=== PATIENT | female | born 1960 | race Caucasian/White ===

== ENCOUNTER → 2017-01-14 | Outpatient (CLI) | payer SELFPAY ==
[~2017-01-14] MED LIST: CALCCHW25 PO; ESTR2TAB PO; PROG200C PO; TAB-TAB PO
[2017-01-17 19:52] LABS: PROGESTERONE 0.7 ng/mL (())
== END ==
LOC: CLAB 13:06
PROVIDERS: ATTEND Internal Medicine
DX: N95.1 Menopausal and female climacteric states (principal)
CPT/HCPCS: 36415; 82670; 83001; 84144; 84403; 86695; 86696

== ENCOUNTER → 2017-05-10 | Outpatient (CLI) | payer SELFPAY ==
[2017-05-14 15:51] LABS: PROGESTERONE 12.5 ng/mL
== END ==
LOC: CLAB 09:15
PROVIDERS: ATTEND Internal Medicine
DX: Z78.0 Asymptomatic menopausal state (principal)
CPT/HCPCS: 36415; 82670; 83001; 84144; 84403

== ENCOUNTER → 2017-05-31 | Outpatient (CLI) | payer SELFPAY ==
[~2017-05-31] MED LIST changes: +CLAR10CA3 PO; +LISI10TA3 PO; +MEGE40TA PO; +POTA-255 PO; +ZANT150T2 PO
[2017-05-31 14:29] LABS: AUTOMATED NEUTROPHIL # 4.4 TH/MM3 (1.8-7.7); BASOPHIL # 0.1 TH/MM3 (0-0.2); BASOPHIL % 1.5 % (0.0-2.0); EOSINOPHIL # 0.2 TH/MM3 (0-0.4); EOSINOPHIL % 2.5 % (0.0-4.0); HEMATOCRIT 33.4 % (35.0-46.0); HEMO FLAGS DIFF FINAL; LYMPH % 30.3 % (9.0-44.0); LYMPHOCYTE # 2.3 TH/MM3 (1.0-4.8); MEAN CELL VOLUME 88.5 FL (80.0-100.0); MEAN CORPUSCULAR HEMOGLOBIN 29.2 PG (27.0-34.0); MEAN CORPUSCULAR HGB CONC 32.9 % (32.0-36.0); MONO % 7.8 % (0.0-8.0); NEUT % 57.9 % (16.0-70.0); PLATELET COUNT 502 TH/MM3 (150-450); RED BLOOD COUNT 3.78 MIL/MM3 (4.00-5.30); RED CELL DISTRIBUTION WIDTH 14.7 % (11.6-17.2); WHITE BLOOD COUNT 7.6 TH/MM3 (4.0-11.0)
[2017-05-31 14:39] LABS: APTT (PATIENT) 25.5 SEC (24.3-30.1)
[2017-05-31 14:53] LABS: ALT (GPT) 16 U/L (10-53); ANION GAP 10 MEQ/L (5-15); AST (GOT) 13 U/L (15-37); BICARBONATE 25.5 MEQ/L (21.0-32.0); BLOOD UREA NITROGEN 14 MG/DL (7-18); CHLORIDE 107 MEQ/L (98-107); GLOMERULAR FILTRATION RATE 53 ML/MIN (>89); GLUCOSE,FASTING 96 MG/DL (74-99); POTASSIUM 3.6 MEQ/L (3.5-5.1); SODIUM (NA) 142 MEQ/L (136-145)
[2017-05-31 14:56] LABS: ALKALINE PHOSPHATASE 54 U/L (45-117); TOTAL BILIRUBIN ADULT 0.3 MG/DL (0.2-1.0)
--- NOTE | 2017-05-31 21:49 | EKG ---
Date Performed: 05/31/2017 Time Performed: 14:53:44 PTAGE: 57 years EKG: Sinus rhythm NORMAL ECG NO PREVIOUS TRACING DOCTOR: Kusum Russell Interpretating Date/Time 05/31/2017 21:47:40
== END ==
LOC: CPRE 14:03
PROVIDERS: ATTEND Obstetrics & Gynecology Gynecologic Oncology
DX: Z01.810 Encounter for preprocedural cardiovascular examination (principal); Z01.812 Encounter for preprocedural laboratory examination; C54.1 Malignant neoplasm of endometrium
CPT/HCPCS: 36415; 80053; 85025; 85610; 85730; 93005

== ENCOUNTER 2017-07-04 05:34 | Observation (INO) | payer OTHER ==
[~2017-07-04] VITALS: Ht 170.2 cm; Wt 69.5 kg
[~2017-07-04 05:34] MED LIST changes: -CALCCHW25 PO; -ESTR2TAB PO; -PROG200C PO; -TAB-TAB PO
[2017-07-04] MEDS ORDERED: SODIUM CHLORIDE FLUSH PRN IV FLUSH (06:00)
[2017-07-04] MEDS ORDERED: LACTATED RINGER'S 1000 ML IV PRN (06:00)
[2017-07-04] MEDS ORDERED: HEPARIN SODIUM - SQ 10,000 UNITS/ML VIAL SQ PRN (06:00)
[2017-07-04] MEDS ORDERED: SODIUM CHLORID 0.9% 500 ML IV PRN (06:00)
[2017-07-04] MEDS ORDERED: METOPROLOL TARTRATE 25 MG TAB PO PRN (06:00)
[2017-07-04] MEDS ORDERED: ceFAZolin 1,000 MG/NS 100 ML IV SCH ×2 (06:00)
[2017-07-04] MEDS ORDERED: POVIDONE IODINE 5% (ANTISEPSIS KIT) 4 APPLICATIONS EACH NARE PRN (06:00)
[2017-07-04] MEDS ORDERED: CHLORHEXIDINE GLUCONATE 2 % 1 PACK (2 CLOTHS) TOPICAL PRN (06:00)
[2017-07-04] MEDS ORDERED: POTA99TA4 PO (06:38)
[2017-07-04] MEDS ORDERED: MEGE40SU PO (06:41)
[2017-07-04] MEDS ORDERED: fentaNYL CITRATE 250 MCG/5 ML AMP ONE ×2 (08:28→16:49)
[2017-07-04] MEDS ORDERED: SODIUM CHLORIDE FLUSH BID IV FLUSH SCH (09:00)
[2017-07-04] MEDS ORDERED: ceFAZolin INJ 1,000 MG VIAL IV ONE ×2 (11:03→12:00)
[2017-07-04] MEDS ORDERED: METHYLENE BLUE 10 MG/ML VIAL IV ONE (11:04)
[2017-07-04] MEDS ORDERED: LIDOCAINE 1%/EPINEPHrine 1:100,000 SOLN 20 ML VIAL INFIL ONE (11:06)
[2017-07-04] MEDS ORDERED: ROCURONIUM INJ 50 MG/5 ML SYRINGE IV PUSH ONE (12:00)
[2017-07-04] MEDS ORDERED: KETOROLAC TROMETHAMINE 30 MG/ML (IVP) VIAL IV PUSH ONE (12:00)
[2017-07-04] MEDS ORDERED: LACTATED RINGER'S 1000 ML INJ 2,000 ML IV ONE (12:00)
[2017-07-04] MEDS ORDERED: PROPOFOL 200 MG/20 ML AMP IV ONE (12:00)
[2017-07-04] MEDS ORDERED: VECURONIUM BROMIDE 20 MG VIAL IV ONE (12:00)
[2017-07-04] MEDS ORDERED: ONDANSETRON HCL 4 MG/2 ML VIAL IV PUSH ONE (12:00)
[2017-07-04] MEDS ORDERED: DEXAMETHASONE SOD PHOS 4 MG/ML VIAL IV ONE (12:00)
[2017-07-04] MEDS ORDERED: METHYLENE BLUE IV ONE (12:00)
[2017-07-04] MEDS ORDERED: SODIUM CHLORID 0.9% IV ONE (12:00)
[2017-07-04] MEDS ORDERED: LIDOCAINE HCL 1% PF 5 ML SYRINGE OTHER ONE (12:00)
[2017-07-04] MEDS ORDERED: SUGAMMADEX SODIUM 200 MG/2 ML VIAL IV PUSH ONE (12:09)
[2017-07-04] MEDS ORDERED: SODIUM CHLORIDE 0.9% FLUSH 10 ML FLUSH IV FLUSH PRN (13:15)
[2017-07-04] MEDS ORDERED: *MEPERIDINE 25 MG INJ VIAL PERIprocedural Use ONLY ONE (13:25)
[2017-07-04] MEDS ORDERED: D5-1/2 NS + KCL 20 MEQ INJ 1,000 ML ONE (13:31)
[2017-07-04] MEDS: D5-1/2 NS + KCL 20 MEQ INJ 1,000 ML IV SCH ×2 (13:35→22:25)
[2017-07-04] MEDS ORDERED: DO NOT ADM ANY ANTICOAGULANT DRUGS PRN (13:45)
[2017-07-04] MEDS ORDERED: traMADol/ACETAMINOPHEN 37.5/325 1 TAB PO PRN (14:00)
[2017-07-04] MEDS ORDERED: ONDANSETRON HCL 4 MG/2 ML VIAL IVP PRN (14:00)
[2017-07-04] MEDS ORDERED: diphenhydrAMINE HCL 25 MG CAP PO PRN (14:00)
[2017-07-04] MEDS ORDERED: LORazepam 0.5 MG TAB PO PRN (14:00)
[2017-07-04] MEDS ORDERED: *morphine SULFATE 4 MG/ML PERIprocedure ONLY ONE ×2 (14:09→14:26)
[2017-07-04 16:05] VITALS: BP 130/64; PULSE 76; RESP 18; O2SAT 100
--- NOTE | 2017-07-04 16:27 | PD.ONC.PN ---
Subjective Subjective Remarks post op pt sleeping, wakes to voice states feels a little dizzy from narcotics I explained she will be getting scheduled IV Toradol Q 6 hours and narcotics are PRN...she does not want anymore narcotics so I will place order for PRN Ofirmev if she feels like she needs more pain control despite the Toradol Objective Data Date Time Temp Pulse Resp B/P (MAP) Pulse Ox O2 Delivery O2 Flow Rate FiO2 07/04/17 16:05 76 18 130/64 (86) 100 07/04/17 15:15 97.6 74 12 124/62 (82) 100 Nasal Cannula 2 07/04/17 15:00 72 9 113/58 (76) 100 07/04/17 14:45 73 12 126/60 (82) 100 07/04/17 14:30 73 12 118/58 (78) 100 07/04/17 14:15 76 8 125/61 (82) 100 07/04/17 14:00 76 10 119/56 (77) 100 07/04/17 13:45 79 8 129/63 (85) 100 07/04/17 13:30 81 12 143/66 (91) 100 07/04/17 13:15 99 12 142/64 (90) 100 Nasal Cannula 2 07/04/17 13:09 97.6 108 18 149/66 (93) 100 Nasal Cannula 2 07/04/17 06:22 98.7 76 16 132/62 (85) 99 07/04/17 07/04/17 07/04/17 07:00 15:00 23:00 Intake Total 1600 ml 189 ml Output Total 850 ml 200 ml Balance 750 ml -11 ml Administered Medications Medications (Trade) Dose Ordered Sig/Inga Route PRN Reason Start Time Stop Time Status Last Admin Dose Admin Heparin Sodium (Porcine) (Heparin Inj) 5,000 units CARDROOM ATTENDANT PRN SQ GIVE CARDROOM ATTENDANT TO OR PRE-OP 07/04/17 06:00 07/04/17 22:00 07/04/17 06:20 Cefazolin Sodium 1000 mg/Sodium Chloride 100 ml @ 200 mls/hr CARDROOM ATTENDANT IV 07/04/17 06:00 07/07/17 05:59 07/04/17 07:04 Lactated Ringer's 1,000 ml @ 30 mls/hr Q24H PRN IV SEE LABEL COMMENTS 07/04/17 06:00 07/07/17 05:59 07/04/17 06:15 Povidone Iodine (Betadine 5% Antisepsis Kit) 1 applic CARDROOM ATTENDANT PRN EACH NARE SEE LABEL COMMENTS 07/04/17 06:00 07/07/17 05:59 07/04/17 06:25 Chlorhexidine Gluconate (Chlorhexidine 2% Cloth) 3 pack CARDROOM ATTENDANT PRN TOPICAL SEE LABEL COMMENTS 07/04/17 06:00 07/07/17 05:59 07/04/17 06:10 Potassium Chloride/Dextrose/ Sod Cl 1,000 ml @ 100 mls/hr Q10H IV 07/04/17 14:00 07/04/17 13:35 Objective Remarks GENERAL: Well-nourished, well-developed patient. SKIN: Warm and dry. HEAD: Normocephalic. EYES: No scleral icterus. No injection or drainage. NECK: Supple, trachea midline. CARDIOVASCULAR: Regular rate and rhythm without murmurs. RESPIRATORY: Breath sounds equal bilaterally. No accessory muscle use. GASTROINTESTINAL: Abdomen soft, non-tender, nondistended. EXTREMITIES: No cyanosis, or edema. MUSCULOSKELETAL: Adequate muscle tone. NEUROLOGICAL: No obvious focal deficit.sleepy Assessment/Plan Problem List: (1) Postoperative state ICD Codes: Z98.890 - Other specified postprocedural states Status: Acute Plan: s/p RA avelina vacast post op orders in chart will add IV Ofirmev d/c modi in am OOB to chair slick RIDLEY anticipate discharge home in next 24 hours (2) Endometrial cancer ICD Codes: C54.1 - Malignant neoplasm of endometrium Plan: s/p RA avelina vacast with BSO final pathology pending will follow up as outpt in 2 weeks for final pathology discussion Huong Rodrigues Jul 04, 2017 16:27
[2017-07-04] MEDS ORDERED: MIDAZOLAM HCL 2 MG/2 ML VIAL ONE (16:49)
[2017-07-04] MEDS ORDERED: ACETAMINOPHEN 1000 MG/100 ML 100 ML IV ONE (16:50)
[2017-07-04 17:03] VITALS: PULSE 70
[2017-07-04] MEDS: ACETAMINOPHEN 1000 MG/100 ML 100 ML IV SCH ×2 (17:42→22:21)
[2017-07-04] MEDS: KETOROLAC TROMETHAMINE 30 MG/ML (IVP) VIAL IVP SCH (17:42)
[2017-07-04 20:00] VITALS: BP 131/58; PULSE 74; PULSE 77; RESP 18; TEMP 98.5; O2SAT 98
[2017-07-04] MEDS: SODIUM CHLORIDE 0.9% FLUSH 10 ML FLUSH IV FLUSH SCH (20:36)
[2017-07-05] VITALS: BP 121/57; PULSE 74; RESP 16; TEMP 99; O2SAT 99
[2017-07-05] MEDS: KETOROLAC TROMETHAMINE 30 MG/ML (IVP) VIAL IVP SCH ×2 (01:51→06:04)
[2017-07-05 03:44] VITALS: BP 118/56; PULSE 70; RESP 16; TEMP 98.6; O2SAT 99
[2017-07-05] MEDS: ACETAMINOPHEN 1000 MG/100 ML 100 ML IV SCH (05:21)
[2017-07-05 06:59] LABS: BASOPHIL # 0.1 TH/MM3 (0-0.2); BASOPHIL % 0.5 % (0.0-2.0); EOSINOPHIL % 0.2 % (0.0-4.0); HEMATOCRIT 31.6 % (35.0-46.0); HEMOGLOBIN 10.2 GM/DL (11.6-15.3); LYMPH % 14.2 % (9.0-44.0); LYMPHOCYTE # 1.8 TH/MM3 (1.0-4.8); MEAN CELL VOLUME 82.5 FL (80.0-100.0); MEAN CORPUSCULAR HEMOGLOBIN 26.6 PG (27.0-34.0); MEAN CORPUSCULAR HGB CONC 32.3 % (32.0-36.0); MEAN PLATELET VOLUME 7.5 FL (7.0-11.0); MONO % 6.9 % (0.0-8.0); MONOCYTE # 0.9 TH/MM3 (0-0.9); NEUT % 78.2 % (16.0-70.0); PLATELET COUNT 465 TH/MM3 (150-450); RED BLOOD COUNT 3.83 MIL/MM3 (4.00-5.30); RED CELL DISTRIBUTION WIDTH 15.7 % (11.6-17.2); WHITE BLOOD COUNT 12.7 TH/MM3 (4.0-11.0)
[2017-07-05 07:11] VITALS: O2SAT 99
[2017-07-05 07:16] LABS: BICARBONATE 25.8 MEQ/L (21.0-32.0); CREATININE 0.77 MG/DL (0.50-1.00)
[2017-07-05] MEDS ORDERED: traMADol-ACETAMIN 37.5-325 MG PO (07:19)
[2017-07-05] MEDS ORDERED: LORATADINE 10 MG TAB PO SCH (09:00)
[2017-07-05] MEDS ORDERED: FAMOTIDINE 20 MG TAB PO SCH (09:00)
[2017-07-05] MEDS ORDERED: LISINOPRIL 10 MG TAB PO SCH (09:00)
[2017-07-05 09:06] VITALS: BP 118/58; PULSE 99; RESP 20; TEMP 99; O2SAT 100
--- NOTE | 2017-07-05 09:20 | MP ---
cc: PK KELLY M.D., KELLY L. MD DATE OF SURGERY: 07/04/2017 PREOPERATIVE DIAGNOSIS 1. Endometrial cancer. 2. Enlarged uterus. 3. Postmenopausal bleeding. POSTOPERATIVE DIAGNOSIS 1. Endometrial cancer. 2. Enlarged uterus. 3. Postmenopausal bleeding. 4. Extensive pelvic adhesions. PROCEDURE Robotic-assisted laparoscopic hysterectomy, bilateral salpingo-oophorectomy (resection of residual adnexal tissue), bilateral retroperitoneal pelvic exploration with excisional lymph node biopsies, extensive lysis of adhesions. SURGEON Jailene Younger MD PROFESSIONAL SKATER [employer]. ANESTHESIA General endotracheal anesthesia. ESTIMATED BLOOD LOSS 200 ccs. HISTORY 57-year-old female with postmenopausal bleeding, underwent evaluation including endometrial biopsy that showed a grade 1 endometrial adenocarcinoma. Imaging showed a thickened endometrial stripe and a prominent uterus that was enlarged without overt evidence of metastatic disease. She in recent weeks has been on progesterone medication which has reduced the bleeding to some extent and this was interval treatment until she was able to move forward with surgery. She is seen in the preop holding area where we again summarized findings in her case to date. I had the opportunity to speak with her last Tuesday in our office when she was in the office going over surgical consents and we reviewed the procedures, the anticipated plan and questions were asked and answered, again covered today. We agreed the principal objective is to remove the central tumor, hysterectomy, to remove any fallopian tube and/or ovarian tissue that persists. Historically she had at least a salpingectomy for ectopic . It is uncertain if the tube and ovary were removed. CAT scan shows no overt evidence of metastatic disease but CAT scan cannot clearly delineate microscopic disease. We reviewed the pros and cons of lymph node dissection in the setting of various risk factors based on the extent of primary tumor as well as the potential problems associated with lymph node dissection. The agreed upon plan following a series of discussions is to thoroughly evaluate the lymph nodes, and should any lymph nodes be prominent or suspicious , they should be removed. The agreed upon objectives include avoidance of complete lymphadenectomy in an effort to offset significant problems such as lymphedema. Pros, cons, risks and benefits were again discussed. Questions were asked and answered. She expressed good understanding. FINDINGS The uterine cavity sounded to between 10 and 11 cm. The uterus itself was symmetrically enlarged. In the pelvis the adhesions were extensive. The colon was fixed to the left pelvic sidewall. The cul-de-sac was obliterated. The colon was stuck to the posterior uterus and cervix. On the right side whatever residual adnexal tissue may be present was densely adherent to the right pelvic sidewall. There was some old blood appearing fluid that drained from a small cyst in the region of the right adnexa suggestive of prior endometriosis. There is also seemingly some small diverticulum but without evidence of active diverticulitis. Visible and palpable inspection revealed no overtly enlarged lymph nodes in the para-aortic or pericaval region. In the right pelvis there were two approximately 1 cm prominent lymph nodes in the obturator space as well as one prominent lymph node along the distal external iliac artery. On the left pelvis there were two prominent lymph nodes along the external iliac artery and one prominent lymph node right at the bifurcation of the common iliacs into the external and internal iliac arteries. In the peritoneal cavity the liver diaphragm edges were smooth. The omentum grossly appeared normal. The large, small bowel and adjacent mesentery were normal without implants. The preliminary pathology of the uterus once removed showed a fairly sizable tumor 6-7 cm, whereas it was predominantly exophytic filling the endometrial cavity and arising from both the anterior and posterior tovar of the uterus. The component of invasion was less noted. However, there were two areas of invasion estimated to be at or just below 50% of the width of the myometrium. The cervix was dilated with tumor extending into the endocervical canal but there was no overt evidence of tumor invasion in the cervix on preliminary assessment. Furthermore, whereas all adnexal tissue was removed as the gonadal vessels were taken at the pelvic brim and dissected distally, on preliminary assessment there was no obvious ovarian tissue attached to either side of the uterus, but with final pathology assessment forthcoming. STATEMENT OF COMPLEXITY/MODIFIER It is estimated that between 90 and 120 minutes of additional operative time were required and spent with meticulous lysis of adhesions to help restore normal anatomy, gain access to the pelvis, identify necessary structures and to accomplish surgical objectives. Modifier should be applied accordingly. PROCEDURE She is taken to the operating room, placed in dorsal lithotomy position. After general endotracheal anesthesia was administered time-out was undertaken. She was identified by sight recognition and hospital ID bracelet and the proposed procedure was reviewed and confirmed. She was carefully positioned in padded Juan Jose stirrups. Her arms were padded and secured to the sides. She was further secured to the operating table with eggcrate padding and tape in across chest over the shoulder fashion. All sites were noted to be properly aligned with no malalignments or pressure points. She was prepped and draped in sterile fashion, placed in high lithotomy position, cervix was grasped, uterine cavity sounded and a standard V-Care manipulator was inserted and secured in usual fashion. Cleary catheter was placed in the bladder. She was returned to low lithotomy position. Change of sterile gloves was undertaken. We confirmed that an orogastric tube was in the stomach on suction and we completed draping in anticipation of laparoscopy. With manual elevation of the abdominal wall and direct laparoscopic visualization a 5-mm cannula was introduced in the left upper quadrant in an atraumatic fashion, carbon dioxide gas was insufflated. Under laparoscopic visualization a 12 mm cannula was placed in midline above the umbilicus, 8 mm cannula was placed in the right upper quadrant and left lateral quadrant. The original 5-mm was exchanged for an 8-mm cannula. The anatomy was surveyed with findings as described above. Peritoneal washings were obtained for cytology. She was placed in Trendelenburg position. The small bowel was folded back on its mesenteric root. Three Ray-Ricky sponges were placed around the root of the small bowel mesentery. The robotic system was brought into the operative field, attached in usual fashion. Monopolar scissors, fenestrated bipolar forceps and Prograsp manipulators were placed in arms number one, two and three respectively and I took my place at the surgeon's console. As noted above, extensive time was taken in lysis of adhesions, sharp dissection to mobilize the colon from the posterior wall of the uterus and cervix to open the posterior cul-de-sac to free adhesions between the colon and left pelvic sidewall to mobilize the colon to gain access to the left pelvic sidewall and to mobilize the colonic mesentery and pericolonic fat from its adhesions against the right pelvic sidewall. The right round ligament was isolated, cauterized and transected. The anterior and posterior leafs of the broad ligament were opened. The right ureter was identified. The right infundibulopelvic ligament was isolated. The intervening peritoneum was opened and the infundibulopelvic ligament was isolated to the level of the pelvic brim where it was cauterized and transected. Dissection was carried out distally. There was no overt residual ovarian or fallopian tube tissue, although dissection was carried out toward the uterus, there was a small collection of old blood and a small cystic component that suggested possible prior endometriosis. Posterior peritoneum was further opened, dissected posteriorly and the vesicouterine peritoneum was dissected off the right lower uterine segment and cervix and the right uterine vessels were skeletonized. The uterine vessels were prominent and the lower uterine segment was dilated. Attention was directed toward the contralateral side where the left round ligament was isolated, cauterized and transected. The anterior and posterior leafs of the broad ligament were opened. The left ureter was identified. The left infundibulopelvic ligament was isolated. The intervening peritoneum was opened. The infundibulopelvic ligament was dissected to the level of the pelvic brim where it was cauterized and transected. Dissection was carried distally such that any adnexal tissue that was present was dissected free, remained attached to the uterus and the posterior peritoneum was further dissected, opened along the left side of the uterus and cervix. The vesicouterine peritoneum was dissected off the left lower uterine segment and cervix and the left uterine vessels were skeletonized. Now that the prominent vasculature was isolated bilaterally, it was cauterized thoroughly bilaterally starting at the level of the lower uterine segment and cervix and when there was complete cauterization bilaterally and the uterus showed diffuse blanching, at this point the vessels were transected bilaterally. The left cardinal, paracervical and uterosacral ligaments were isolated, cauterized and transected along the left side of the uterus and cervix and attention was directed toward the right side where similarly the right cardinal, paracervical and uterosacral ligaments were isolated, cauterized and transected in a stepwise fashion. Circumferential colpotomy was performed the cervix from the upper vagina and due to the large size of the uterus relative to the pelvic outlet, I left the surgeon's console to deliver the specimen transvaginally. With countertraction using tenaculums positioning and retraction on the posterior wall of the vagina, the specimen was delivered which included uterus, cervix and whatever residual adnexal tissue were present and a pneumooccluder balloon was placed in the vagina to maintain pneumoperitoneum. I returned to the surgeon's console. Instruments one and three exchanged for needle drivers, as a 0 Vicryl suture was introduced, the vaginal cuff was closed starting at the left corner, full-thickness closure including the posterior peritoneum, edge of the uterosacral ligament and were tied via instrument tie. The closure was held on countertraction as a running continuous full-thickness closure was carried across the vaginal apex to the contralateral corner where it was similarly fixed and secured, tied via instrument tie. The needle was cut and removed. The preliminary pathology came back with findings as described above. The lymph node basins were inspected with findings as described above. Dissection was started on the right side where the paravesical, pararectal and obturator spaces were opened. The first lymph node along the distal external iliac artery was isolated with bipolar cautery and sharp dissection was removed, was placed on the Ray-Ricky sponge that was in the right pericolic gutter and then the obturator space was further inspected. Two prominent lymph nodes were detected within the obturator space ventral to the obturator nerve and these were isolated and with bipolar cautery and sharp dissection were removed. The remainder of the lymph node basin was carefully inspected. There were no other visible or prominent lymph nodes. The remainder of the lymphatics were left intact. Attention was directed toward the left side where similar the paravesical, pararectal and obturator spaces were developed. Two prominent lymph nodes were noted along the external iliac artery and vein. These were isolated, removed with bipolar cautery and sharp dissection. They were placed on a Ray-Ricky sponge in the left pericolic gutter and obturator space was further developed. There were no prominent lymph nodes within the obturator space itself but at the bifurcation of the common iliac to the external and internal iliac was a prominent lymph node which was isolated, removed and placed with the other lymph nodes in the left pericolic gutter. Careful inspection of the lymphatic basin showed no other detectable or prominent lymph nodes and the remainder of the lymphatics were left intact. The integrity of the bladder was confirmed by filling the bladder dyed with methylene blue. The bladder filled nicely under pressure. There were no areas of blue to suggest thinning of the bladder, certainly no extravasation of dye. There is good peristalsis of the ureters bilaterally and it was felt that all reasonable surgical objectives had been completed. The robotic instruments were removed. The robotic system was disengaged from the operative field. I reentered the bedside under sterile condition. 12 cm EndoCatch bag was used to capture first the left pelvic lymph nodes and then another EndoCatch bag to capture the right pelvic lymph nodes which were brought out through the 12-mm fascial incision. Each of the three Ray-Ricky sponges that were placed in the peritoneal cavity were removed. Each were removed individually and inspected and noted to be removed in their entirety. Visual inspection confirmed good hemostasis. No remaining foreign objects in the peritoneal cavity. Hemostatic Surgicel powder was placed across the vaginal cuff and lateral pelvic sidewall dissection and attention was directed toward closing. 12 mm fascial defect closed with 0 Vicryl sutures using needle pass fascial closure apparatus, tied securely which rendered the fascia completely airtight and hemostatic. The remaining incisions closed with 3-0 Vicryl subcutaneous, 3-0 Vicryl subcuticular and then Steri-Strips were used to cover these incisions. She was returned to dorsal lithotomy position. The vaginal cuff was well-supported intact. There were no vaginal lacerations. There was a little bit of generalized oozing along the vaginal mucosa at the apex and Surgicel snow was placed at the vaginal apex to assist in continued hemostasis. There were no remaining foreign objects in the vagina and the final counts were correct. She was returned to dorsal supine position and was pending reversal of anesthesia when I left the operating room to precede her to the Post Anesthesia Care Unit. MD RENETTA Herndon/SHARLA /7:12 AM /8:20 AM YAHIR
--- NOTE | 2017-07-05 09:24 | MD ---
cc: PK KELLY M.D., KELLY L. MD ADMISSION DATE: 07/04/2017 DISCHARGE DATE: 07/05/2017 [facility] Visit Search.Discharge Date PROCEDURE 07/04/2017 - Robotic-assisted laparoscopic hysterectomy, bilateral salpingo-oophorectomy, bilateral pelvic lymph node excisional biopsies, extensive lysis of adhesions. DIAGNOSIS Endometrial cancer. HOSPITAL COURSE She did well in the early postoperative period and remained hemodynamically stable. Ins and outs 2211/1950. POSTOP LABS H&H 10.2 and 31.6. Platelets 465, white count 12.7. Electrolytes essentially normal. BUN and creatinine 7 and 0.77. PHYSICAL EXAMINATION VITAL SIGNS: Afebrile, pulse 70-74, respirations 16-18, blood pressure 118-131/56-64, O2 saturations greater than or equal to 98%. GENERAL: Alert and oriented x3, in no acute distress. LUNGS: Clear. CARDIOVASCULAR: Regular rate and rhythm. ABDOMEN: Incisions is clean and dry. SOFTWARE ADMINISTRATOR: No active bleeding. ASSESSMENT Postoperative day #1. Findings, steps taken at surgery, preliminary pathology were reviewed. Activities and restrictions discussed. Questions were asked and answered. She expressed good understanding. PLAN Anticipate discharge to home. DISCHARGE INSTRUCTIONS She is to contact our office to ensure she has a postop visit scheduled in approximately 2 weeks. Will have the final pathology at that time and will go over the pathology at the time of follow-up visit. She is to resume prior medications. She will have a prescription for Ultracet. She is to contact our office between now and then should she have any questions or problems. MD RENETTA Herndon/ALVINA /7:08 AM /9:02 AM
[2017-07-05] MEDS ORDERED: ACETAMINOPHEN 500 MG CPLT PO PRN (09:45)
[2017-07-05] MEDS: SODIUM CHLORIDE 0.9% FLUSH 10 ML FLUSH IV FLUSH SCH (09:51)
== END 2017-07-05 09:49 | disposition home or self-care (01) ==
LOC: HSDC 05:34 → HSDI 13:04 → HCIN 15:59
PROVIDERS: ADMIT Obstetrics & Gynecology Gynecologic Oncology; ATTEND Obstetrics & Gynecology Gynecologic Oncology
DX: C54.1 Malignant neoplasm of endometrium (principal); N73.6 Female pelvic peritoneal adhesions (postinfective); N85.2 Hypertrophy of uterus; N95.0 Postmenopausal bleeding
CPT/HCPCS: 00400; 00840; 38500; 58552; 80048; 85025; 86850; 86900; 86901; 86920; 88112; 88305; 88307; 88309; 88331; 94150; 96365; 96366; 96367; 96368; 96375; 96376; G0378; J0131; J0690; J1100; J1644; J1885; J2175; J2250; J2270; J2405; J3010; J3480; J7120

== ENCOUNTER 2017-07-27 08:01 | Day surgery (SDC) | payer OTHER ==
[~2017-07-27] VITALS: Ht 170.2 cm; Wt 68.6 kg
[~2017-07-27 08:01] MED LIST changes: -MEGE40TA PO; -POTA-255 PO; +POTA99TA4 PO; +traMADol-ACETAMIN 37.5-325 MG PO
[2017-07-27 08:25] VITALS: BP 128/68; PULSE 96; RESP 20; TEMP 97.8; O2SAT 98
[2017-07-27] MEDS ORDERED: CHLORHEXIDINE GLUCONATE 2 % 1 PACK (2 CLOTHS) TOPICAL SCH (08:45)
[2017-07-27] MEDS ORDERED: SODIUM CHLORIDE 0.9% 1000 ML IV SCH (08:45)
[2017-07-27] MEDS: VANCOMYCIN 1000 MG/NS 250 ML - implanted port/tunneled catheter IV SCH ×4 (08:45→11:34)
[2017-07-27] MEDS ORDERED: POVIDONE IODINE 5% (ANTISEPSIS KIT) 4 APPLICATIONS EACH NARE SCH (08:45)
[2017-07-27] MEDS: ceFAZolin 2 GM PREMIX 50 ML - implanted port/tunneled catheter insertion IV SCH ×2 (08:47→11:34)
[2017-07-27] MEDS ORDERED: MIDAZOLAM HCL 2 MG/2 ML VIAL ONE ×2 (09:11)
[2017-07-27 10:25] VITALS: BP 134/69; PULSE 74; RESP 16; TEMP 98.7; O2SAT 95
[2017-07-27 10:40] VITALS: BP 140/79; PULSE 83; RESP 16; O2SAT 97
--- NOTE | 2017-07-27 10:48 | RADRPT ---
EXAM DATE/TIME: 07/27/2017 08:41 [facility] COMPARISON: No previous studies available for comparison. INDICATIONS : Patient presents with endometrial cancer in need of port placement for treatment. MEDICAL HISTORY : GERD Hemorrhoids in 2015 Hypercholesterolemia in 2015 Peptic ulcer disease in 2015 Diverticulitis in 1989 Diverticulosis in 1989 HTN in 1989 SURGICAL HISTORY : Biopsy (endometrial) in 2017 Colonoscopy in 2015 Mini lap, jessica in 1990 Exp. lap right salpingectomy (ectopic ) in 1989 Multiple biopsies (limpoma) in 1985 ENCOUNTER: Initial ACUITY: 2 months PAIN SCORE: 0/10 LOCATION: N/A FLUORO TIME: 0.7 minutes IMAGE SERIES: SEDATION TIME: 30 minutes ACCESS: Right internal jugular vein SEDATION: 1.) 2 mg midazolam (Versed) IV 2.) 100 mcg fentanyl (Sublimaze) IV Prophylactic antibiotics were administered with appropriate pre-procedure timing. Vancomycin within 2 hours of procedure, Ancef (or alternative) within 1 hour of procedure. DEVICE: 1. 8 Jamaican single lumen Xcela Plus Port PROCEDURE : 1. Continuous pulse oximetry and EKG monitoring. 2. Intravenous conscious sedation. 3. Ultrasound guidance for venous access. 4. Fluoroscopic guided implantable central venous port placement. The patient was placed supine. The neck was prepped in sterile fashion. Full sterile technique was u sed, including cap, mask, sterile gloves and gown, and a large sterile sheet. Hand hygiene and 2% ch lorhexidine Betadine was utilized per protocol for cutaneous antisepsis with appropriate dry time for site. Sterile gel and sterile probe cover were utilized for ultrasound guidance. The skin and sub cutaneous tissues were infiltrated with local anesthetic solution. Under direct ultrasound guidance, central venous access was accomplished in the targeted vessel. The ultrasound images depicting access guidance were stored and saved to PACS for permanent record. A s ubcutaneous pocket was created using blunt dissection. The port was introduced to the pocket. The c atheter tubing was fed through a subcutaneous tunnel to the venotomy site. The catheter tubing was c ut to a suitable length and then was introduced through a valved Peel-Away sheath and positioned with catheter tubing tip at the cavo-atrial junction level. The pocket incision was closed with subcutic ular Vicryl suture. Steri-Strips were applied. The port was flushed and locked with heparin solutio n per protocol. Sterile dressing was applied to the site. The patient tolerated the procedure well. Conscious sedation was performed with the prescribed dosages and duration as above in the presence of an independent trained radiology nurse to assist in the monitoring of the patient. EKG and oximetry remained stable throughout the procedure. The patient tolerated the procedure well and there were no complications. The patient was sent to post anesthesia recovery in stable condition. CONCLUSION: Uncomplicated ultrasound and fluoroscopic guided implanted central venous port catheter placement as described in detail above. An 8 Jamaican Power port was placed. Álvaro Ernst Jr., MD on July 27, 2017 at 10:39 Board Certified Radiologist. This report was verified electronically.
--- NOTE | 2017-07-27 10:56 | PD.RAD ---
Post Procedure Progress Note Pre Procedure Diagnosis: (1) Endometrial cancer Post Procedure Diagnosis: (1) Endometrial cancer Procedure Date: Jul 27, 2017 Supervising Radiologist: Álvaro Ernst JR Proceduralist/Assist: Trang Isbell, RT(R)(CV), Prabhjot Carter, RT(R) Anesthesia: Conscious Sedation Plan of Activity Patient to Unit: ROPU Patient Condition: Good See PACS Report for procedural detail/treatment Central Venous Access Device Procedure 1 Right Internal Jugular Infusaport Placement single lumen [place]ian: 8 Findings: Power port in good position and functions well. OK to use. Plan F/U PRN Jr. Klever,Álvaro Gifford MD Jul 27, 2017 10:56
[2017-07-27] MEDS ORDERED: SODIUM CHLORIDE 0.9% FLUSH 10 ML FLUSH IVF PRN (11:00)
[2017-07-27 11:10] VITALS: BP 141/86; PULSE 95; RESP 16; O2SAT 97
[2017-07-27 11:40] VITALS: BP 142/77; PULSE 88; RESP 16
== END 2017-07-27 12:15 | disposition home or self-care (01) ==
LOC: HROP 08:01 → HRIP 08:02 → HROP 12:15
PROVIDERS: ATTEND Obstetrics & Gynecology Gynecologic Oncology
DX: Z45.2 Encounter for adjustment and management of vascular access device (principal); C54.1 Malignant neoplasm of endometrium; I10 Essential (primary) hypertension; E78.00 Pure hypercholesterolemia, unspecified; K21.9 Gastro-esophageal reflux disease without esophagitis
CPT/HCPCS: 36561; 76937; 77001; 99152; 99153; C1788; J0690; J1642; J2250; J3010; J3370; J7050